=== PATIENT | female | born 1985 | race Two or more races ===

== ENCOUNTER 2021-07-14 08:50 | Outpatient (CLI) | payer OTHER | END 2021-07-14 08:59 | disposition home or self-care (01) | LOC: RAD 08:50 | PROVIDERS: ATTEND Orthopaedic Surgery | DX: M25.561 Pain in right knee (principal) ==

== ENCOUNTER 2021-10-27 07:25 | Emergency (ER) | payer OTHER ==
[~2021-10-27] VITALS: Ht 165.1 cm; Wt 88.5 kg
[2021-10-27] MEDS ORDERED: XIGDUO XR 10 M1 EAC1 PO (07:57)
[2021-10-27] MEDS ORDERED: METRONIDAZOLE500 MG PO (09:36)
[2021-10-27] MEDS ORDERED: CIPRO500 MG PO (09:36)
== END 2021-10-27 09:44 | disposition home or self-care (01) ==
LOC: ER 07:25
DX: L02.31 Cutaneous abscess of buttock (principal); E11.9 Type 2 diabetes mellitus without complications; Z79.84 Long term (current) use of oral hypoglycemic drugs; I10 Essential (primary) hypertension; B96.89 Other specified bacterial agents as the cause of diseases classified elsewhere

== ENCOUNTER 2022-09-13 20:56 | Emergency (ER) | payer OTHER ==
[~2022-09-13] VITALS: Ht 167.6 cm; Wt 89.4 kg
[~2022-09-13 20:56] MED LIST: CIPRO500 MG PO; METRONIDAZOLE500 MG PO; XIGDUO XR 10 M1 EAC1 PO
== END 2022-09-13 22:50 | disposition home or self-care (01) ==
LOC: ER 20:56
DX: E13.69 Other specified diabetes mellitus with other specified complication (principal)

== ENCOUNTER → 2025-01-02 08:50 | Outpatient (CLI) | payer OTHER ==
[~2025-01-02 08:50] MED LIST changes: +MOUNJARO2.5 MG/0.5 SQ
== END | disposition home or self-care (01) ==
LOC: PRENATAL 08:50
PROVIDERS: ATTEND Obstetrics & Gynecology Maternal & Fetal Medicine
DX: O44.00 Complete placenta previa NOS or without hemorrhage, unspecified trimester (principal); O28.1 Abnormal biochemical finding on antenatal screening of mother; O24.319 Unspecified pre-existing diabetes mellitus in pregnancy, unspecified trimester; O34.219 Maternal care for unspecified type scar from previous cesarean delivery; O09.529 Supervision of elderly multigravida, unspecified trimester; O26.879 Cervical shortening, unspecified trimester; Z3A.20 20 weeks gestation of pregnancy

== ENCOUNTER 2025-01-31 10:53 | Outpatient (CLI) | payer OTHER | END 2025-01-31 10:58 | disposition home or self-care (01) | LOC: PRENATAL 10:53 | PROVIDERS: ATTEND Obstetrics & Gynecology Maternal & Fetal Medicine | DX: O26.849 Uterine size-date discrepancy, unspecified trimester (principal); O28.1 Abnormal biochemical finding on antenatal screening of mother; O24.319 Unspecified pre-existing diabetes mellitus in pregnancy, unspecified trimester; O34.219 Maternal care for unspecified type scar from previous cesarean delivery; O09.529 Supervision of elderly multigravida, unspecified trimester; O26.879 Cervical shortening, unspecified trimester; Z3A.24 24 weeks gestation of pregnancy ==

== ENCOUNTER → 2025-03-06 13:01 | Outpatient (CLI) | payer OTHER | END | disposition home or self-care (01) | LOC: PRENATAL 13:01 | PROVIDERS: ATTEND Obstetrics & Gynecology Maternal & Fetal Medicine | DX: O26.849 Uterine size-date discrepancy, unspecified trimester (principal); O28.1 Abnormal biochemical finding on antenatal screening of mother; O24.319 Unspecified pre-existing diabetes mellitus in pregnancy, unspecified trimester; O34.219 Maternal care for unspecified type scar from previous cesarean delivery; O09.529 Supervision of elderly multigravida, unspecified trimester; O26.879 Cervical shortening, unspecified trimester; Z3A.29 29 weeks gestation of pregnancy ==